=== PATIENT | male | born 1945 | race American Indian/Alaskan Native ===

== ENCOUNTER 2020-05-30 13:02 | Day surgery (SDC) | payer MEDICARE, OTHER ==
[~2020-05-30 13:02] MED LIST: ADULT LOW DOSE81 MG PO; DAILY MULTIPLE1 EACH PO; VITAMIN D-40010 MCG PO
--- NOTE | 2020-05-30 15:30 | NUR ---
05/30/20 1530 Yesi Humphrey 1516 PT ARRIVED TO PACU AWAKE AND TALKING TO RN. VSS. 1523 O2 REMOVED. PLAN OF CARE DISCUSSED.
--- NOTE | 2020-06-01 08:31 | OR ---
[facility] [address] [place], [place] [address] Signed DATE OF OPERATION: 05/30/2020 SURGEON: Kirby Adams MD PREOPERATIVE DIAGNOSES: 1. Hemoccult-positive stool. 2. Family history of stomach cancer (grandfather). 3. Family history of colon cancer (father). POSTOPERATIVE DIAGNOSES: 1. Bulbar duodenal erosions and proximal and distal gastritis with hiatal hernia without esophagitis. 2. Diverticular changes in the sigmoid and polyps x3. PROCEDURE: 1. Esophagogastroduodenoscopy with biopsy. 2. Total colonoscopy to cecum with hot snare polypectomy x2, cold morcellation polypectomy x1. ANESTHESIA: Intravenous sedation, fentanyl 150 mcg and Versed 6 mg total. INDICATION: A 74-year-old white man has only 1 leg (right missing) and is a retired nurse. He is referred by Dr. Andrews of [facility] for Hemoccult-positive stools. The patient has a history of stomach cancer in a paternal grandfather and colon cancer in his father. He is admitted at this time to undergo upper endoscopy on the basis of his Hemoccult-positive stools and family history for upper endoscopy and colonoscopy. The risks of bleeding, infection, and perforation were reviewed with him in detail. He understands and wished to proceed. FINDINGS: Upper endoscopy showed normal esophagus. He did have a hiatal hernia. He had proximal and distal gastritis and definitely duodenitis including bulbar erosions. CLOtest was equivocal at 40 minutes post procedure. There was a hiatal hernia. On colonoscopy, the prep was good and complete colonoscopy was undertaken to the cecum. There was a polyp of the cecum, which was excised with a combination of hot snare technique, cold morcellation technique, and uncertainty as to completeness of resection, though the polyp was relatively small in fact. There were 2 other polyps, one in the Electronically Signed By: KIRBY ADAMS MD 06/01/20 0831 PATIENT NAME: DENIS PLAZA OPERATIVE REPORT DATE OF : 45 REPORT #: [id number] PHYSICIAN: KIRBY ADAMS MD PCP: AMIE ANDREWS MD REPORT IS CONFIDENTIAL AND NOT TO BE RELEASED WITHOUT AUTHORIZATION [facility] [address] [place], [place] [address] Signed sigmoid, the other at 60 cm, both excised fully. Diverticular changes in the sigmoid were noted as well. DESCRIPTION OF PROCEDURE: The patient was brought to the endoscopy suite and placed in lateral decubitus position, given intravenous sedation to the point of slurred speech and nystagmus with full cardiopulmonary monitoring. A bite block was placed. An Olympus video upper endoscope was passed in the hypopharynx. The vocal cords appeared normal. Scope was passed down the esophagus, which was normal. Scope was passed in the stomach, which was insufflated with air. Rugal folds were normal. There was mild diffuse gastritis distally. The pylorus was normal, but there was a pre-pyloric mucosal area that was somewhat adenomatous in appearance, but not with a well-formed polypoid configuration. The scope was passed into the duodenum where there was no sign of abnormality of the 2nd and 3rd portions. Biopsies were taken distally to assess for celiac disease. The scope was withdrawn to the bulbar duodenum, which clearly showed erosive changes, but no deep ulceration. Biopsies were obtained there as well. The scope was withdrawn to the pre-pyloric antrum, where the adenomatous appearing changes was biopsied. Again, it did not have a strict appearance of polypoid configuration, but mucosal changes were suggestive of adenomatous change. The scope was withdrawn and biopsy was taken of more proximal stomach. Review of the GE junction showed it to be a hiatal hernia that was small. Scope was straightened and withdrawn. The distal esophagus biopsied that appeared normal. Remaining esophagus was normal. Plans were then made for colonoscopy. Digital rectal examination was undertaken and an Olympus video colonoscope passed in the rectum and manipulated into the sigmoid, where a small sessile polyp was noted. This was excised with cold morcellation technique. The scope was advanced further and ultimately passed to the cecum. The ileocecal valve and appendiceal orifice were normal. The cecum did have a small sessile polyp, that was excised initially with hot snare technique and subsequently cold morcellation technique. Incomplete resection of this polyp is likely based on what I saw, though did not have worrisome appearance in any other way. The scope was withdrawn and at 60 cm from the anal verge, another polyp was noted. This was somewhat pedunculated and this was excised with hot snare technique and passed for pathology. Diverticula once again seen in the left colon. Scope was withdrawn further and the area of previous polyp excision also noted. Retroflexed view of the rectum was reasonably normal. The scope was removed, and the patient was taken to the recovery room in good condition. CONCLUDING DIAGNOSES: 1. Duodenal erosions and equivocal CLOtest. Diffuse gastritis and hiatal hernia, but no esophagitis. 2. Polyps x3 and diverticulosis of colon. Electronically Signed By: KIRBY ADAMS MD 06/01/20 0831 PATIENT NAME: DENIS PLAZA OPERATIVE REPORT DATE OF : 45 REPORT #: [id number] PHYSICIAN: KIRBY ADAMS MD PCP: AMIE ANDREWS MD REPORT IS CONFIDENTIAL AND NOT TO BE RELEASED WITHOUT AUTHORIZATION [facility] [address] [place] [address] Signed PLAN: He will see us back in about 4 weeks. We will review his pathology reports and so on. In the meantime, we will initiate Prilosec 20 mg p.o. daily on the basis of his duodenal findings. We will await the final result regarding the CLOtest as it is somewhat equivocal currently. MD KAROLINE Finn/SHANICEL /[id number] cc: Amie Andrews MD Copies: AMIE ANDREWS MD ~ Electronically Signed By: KIRBY ADAMS MD 06/01/20 0831 PATIENT NAME: DENIS PLAZA OPERATIVE REPORT DATE OF : 45 REPORT #: [id number] PHYSICIAN: KIRBY ADAMS MD PCP: AMIE ANDREWS MD REPORT IS CONFIDENTIAL AND NOT TO BE RELEASED WITHOUT AUTHORIZATION
--- NOTE | 2020-06-01 16:56 | PATH ---
[facility] [address] [facility], [place] [address] Signed SPECIMEN(S): A DUODENUM SPECIMEN(S): B BULBAR DUODENUM SPECIMEN(S): C PREPYLORUS SPECIMEN(S): D PROXIMAL STOMACH SPECIMEN(S): E DISTAL ESOPHAGUS SPECIMEN(S): F SIGMOID POLYP SPECIMEN(S): G CECAL POLYP SPECIMEN(S): H COLON POLYP AT 50 CM SPECIMEN SOURCE: A. DUODENUM B. BULBAR DUODENUM C. PREPYLORUS D. PROXIMAL STOMACH E. DISTAL ESOPHAGUS F. SIGMOID POLYP G. CECAL POLYP H. COLON POLYP AT 50 CM CLINICAL HISTORY: Epigastric pain; hemoccult + stools. Post-Op diagnosis: Bulbar erosions, hiatal hernia, possible adenomatous changes, diverticulosis, polyp X 3. MICROSCOPIC DESCRIPTION: Histologic sections of all submitted blocks are examined by light microscopy. These findings, together with the gross examination, support the pathologic diagnosis. FINAL PATHOLOGIC DIAGNOSIS: A. Duodenum, biopsy: - Duodenal mucosa with no histopathologic abnormality. - Negative for dysplasia or malignancy. B. Duodenum, bulb, biopsy: - Ulcerated duodenal mucosa with active inflammation and changes consistent with peptic duodenitis. - Positive for Helicobacter organisms. - Negative for dysplasia or malignancy. C. Stomach, prepylorus, biopsy: - Antral mucosa with chronic, active gastritis and hyperplastic mucosal changes. - Positive for Helicobacter organisms on HE stain. - Negative for dysplasia or malignancy. PATIENT NAME: DENIS PLAZA PATHOLOGY DATE OF : 45 REPORT #: [id number] PHYSICIAN: GLENN PATHOLOGY PCP: AMIE MASTERS MD REPORT IS CONFIDENTIAL AND NOT TO BE RELEASED WITHOUT AUTHORIZATION [facility] [address] [place], [place] [address] Signed D. Stomach, proximal, biopsy: - Oxyntic mucosa with mild chronic, inactive gastritis. - Positive for Helicobacter organisms on HE stain. - Negative for dysplasia or malignancy. E. Esophagus, distal, biopsy: - Squamocolumnar junctional mucosa with chronic inflammation and reactive epithelial changes, consistent with reflux esophagitis. - Negative for Helicobacter organisms. - Negative for intestinal metaplasia, dysplasia, or malignancy. F. Colon, sigmoid, polyp, polypectomy: - Fragments of edematous colonic mucosa with no histopathologic abnormality. - Benign mucosal lymphoid aggregates are present. - Negative for dysplasia or malignancy. G. Colon, cecum, polyp, polypectomy: - Fragments of tubulovillous adenoma. - Negative for high-grade dysplasia or malignancy. H. Colon, polyp at 50 cm, polypectomy: - Tubular adenoma. - Negative for high-grade dysplasia or malignancy. COMMENT: H. pylori immunohistochemical stains (with appropriately staining controls) were performed (A, B, and E) highlight Helicobacter organisms within the duodenal bulb (B) specimen and are negative for Helicobacter organisms in the duodenum (A) and distal esophagus (E) biopsies. NAL:smn:C2NR GROSS DESCRIPTION: Eight specimens are received in eight containers, labeled "FL." A. The specimen, labeled "FL," and designated on the requisition "duodenum biopsy," is received in formalin and consists of one fragment of pink-torres tissue (0.4 x 0.3 x 0.3 cm). The specimen is submitted entirely in cassette (A1). B. The specimen, labeled "FL," and designated on the requisition "bulbar duodenum biopsy," is received in formalin and consists of three fragments of pink-torres tissue (0.4 x 0.4 x 0.2 cm in aggregate). The specimen is submitted entirely in cassette (B1). C. The specimen, labeled "FL," and designated on the requisition "prepyloric biopsy," is received in formalin and consists of three fragments of pink-torres tissue (0.4 x 0.3 x 0.2 cm in aggregate). The specimen is submitted entirely in cassette (C1). PATIENT NAME: DENIS PLAZA PATHOLOGY DATE OF : 45 REPORT #: [id number] PHYSICIAN: GLENN RODGERS PCP: AMIE MASTERS MD REPORT IS CONFIDENTIAL AND NOT TO BE RELEASED WITHOUT AUTHORIZATION [facility] [address] [place], [place] [address] Signed D. The specimen, labeled "FL," and designated on the requisition "proximal stomach biopsy," is received in formalin and consists of one fragment of pink-torres tissue (0.3 x 0.2 x 0.2 cm). The specimen is submitted entirely in cassette (D1). E. The specimen, labeled "FL," and designated on the requisition "distal esophagus biopsy," is received in formalin and consists of three fragments of white-torres tissue (0.6 x 0.3 x 0.3 cm in aggregate). The specimen is submitted entirely in cassette (E1). F. The specimen, labeled "FL," and designated on the requisition "sigmoid polypectomy," is received in formalin and consists of five fragments of pink-torres tissue (0.7 x 0.4 x 0.2 cm in aggregate). The specimen is submitted entirely in cassette (F1). G. The specimen, labeled "FL," and designated on the requisition "cecum polypectomy," is received in formalin and consists of multiple fragments of pink-torres to red-brown tissue (0.9 x 0.6 x 0.2 cm in aggregate). The specimen is submitted entirely in cassette (G1). H. The specimen, labeled "FL," and designated on the requisition "colon polypectomy at 50 cm," is received in formalin and consists of one pink-torres polyp (0.6 x 0.5 x 0.5 cm). The resection margin is inked blue and the polyp is bisected and submitted entirely in cassette (H1). AC (under the direct supervision of a pathologist) The Gross Description was prepared using a voice recognition system. The report was reviewed for accuracy; however, sound-alike word errors, addition and/or deletions may occur. If there is any question about this report, please contact Client Services. ADDITIONAL NOTES: Immunohistochemical and/or in situ hybridization studies were performed on this case with the appropriate positive controls that react as expected. This test was developed and its performance characteristics determined by [facility]. It has not been cleared or approved by the U.S. Food and Drug Administration. The FDA has determined that such clearance or approval is not necessary. This test is used for clinical purposes. It should not be regarded as investigational or for research. [facility] is certified under the Clinical Laboratory Improvement Amendments of 1988 (CLIA) as qualified to perform high complexity clinical laboratory testing. PATIENT NAME: DENIS PLAZA PATHOLOGY DATE OF : 45 REPORT #: [id number] PHYSICIAN: GLENN RODGERS PCP: AMIE MASTERS MD REPORT IS CONFIDENTIAL AND NOT TO BE RELEASED WITHOUT AUTHORIZATION [facility] [address] [place] [id number] Signed PERFORMING LABORATORY: The technical component was performed [place] [address] (Tractor Mechanic: Cheryl Yates MD; CLIA# [id number]). Professional interpretation was performed by [facility] [address] [address] (CLIA# [id number]). Diagnostician: Lin Villanueva MD Pathologist Electronically Signed 06/01/2020 Copies: ~ PATIENT NAME: DENIS PLAZA PATHOLOGY DATE OF : 45 REPORT #: [id number] PHYSICIAN: GLENN RODGERS PCP: AIME MASTERS MD REPORT IS CONFIDENTIAL AND NOT TO BE RELEASED WITHOUT AUTHORIZATION
== END 2020-05-30 16:00 | disposition home or self-care (01) ==
LOC: DS 13:02
PROVIDERS: ATTEND Surgery
PROC: 0DB98ZX Excision of Duodenum, Via Natural or Artificial Opening Endoscopic, Diagnostic (ICD-10-PCS; 2020-05-30)
PROC: 0DB78ZX Excision of Stomach, Pylorus, Via Natural or Artificial Opening Endoscopic, Diagnostic (ICD-10-PCS; 2020-05-30)
PROC: 0DB68ZX Excision of Stomach, Via Natural or Artificial Opening Endoscopic, Diagnostic (ICD-10-PCS; 2020-05-30)
PROC: 0DB38ZX Excision of Lower Esophagus, Via Natural or Artificial Opening Endoscopic, Diagnostic (ICD-10-PCS; 2020-05-30)
PROC: 0DBN8ZX Excision of Sigmoid Colon, Via Natural or Artificial Opening Endoscopic, Diagnostic (ICD-10-PCS; principal; 2020-05-30 14:00)
PROC: 0DBH8ZX Excision of Cecum, Via Natural or Artificial Opening Endoscopic, Diagnostic (ICD-10-PCS; 2020-05-30 14:00)
DX: K26.9 Duodenal ulcer, unspecified as acute or chronic, without hemorrhage or perforation (principal); K29.50 Unspecified chronic gastritis without bleeding; K20.90 Esophagitis, unspecified without bleeding; B96.81 Helicobacter pylori [H. pylori] as the cause of diseases classified elsewhere; D12.0 Benign neoplasm of cecum; K44.9 Diaphragmatic hernia without obstruction or gangrene; K57.30 Diverticulosis of large intestine without perforation or abscess without bleeding; K29.70 Gastritis, unspecified, without bleeding; N40.0 Benign prostatic hyperplasia without lower urinary tract symptoms; R97.20 Elevated prostate specific antigen [PSA]; Z89.611 Acquired absence of right leg above knee; Z88.1 Allergy status to other antibiotic agents; Z79.82 Long term (current) use of aspirin; Z79.899 Other long term (current) drug therapy; Z80.0 Family history of malignant neoplasm of digestive organs
CPT/HCPCS: 88305; 88341; 88342; 99153; G0500; J2250; J3010